=== PATIENT | female | born 1980 | race Caucasian/White ===

== ENCOUNTER 2019-06-27 12:35 | Emergency (ER) | payer OTHER, SELFPAY ==
[2019-06-27 12:36] VITALS: BP 117/79; PULSE 99; RESP 16; TEMP 36.6; O2SAT 96; BMI 27.0
[2019-06-27 13:21] LABS: Absolute Lymphocyte Count 1.47 X10^3/uL (0.83-4.51); Absolute Neutrophil Count 7.2 X10^3/uL (2.0-7.7); Basophil# 0.09 X10^3/uL; Basophil% 0.9 % (0-1); Hematocrit 36.7 % (37-47); Hemoglobin 11.4 g/dL (12.0-15.0); Lymphocyte # 1.47 X10^3/ul (4.0); Mean Corp Hgb Conc 31.1 g/dL (32-36); Mean Corpuscular Hgb 25.1 pg (27.0-32.0); Mean Corpuscular Volume 80.8 fL (81-99); Mean Platelet Vol. 9.1 fl (6.2-12.0); Monocyte# 0.85 X10^3/uL; Monocyte% 8.7 % (0-10); NRBC Flagged by Analyzer 0 % (0-5); Neutrophil # 7.15 X10^3/uL (2.7-7.7); POSITIVE MORPHOLOGY YES; Platelet Count 357 K/mm3 (150-450); RBC Distribution Width CV 20.1 % (11.6-14.6); RBC Distribution Width SD 58.6 fl (35.1-43.9); Red Blood Count 4.54 M/mm3 (4.2-5.4); White Blood Count 9.8 K/mm3 (4.4-11.0)
[2019-06-27 13:22] LABS: Differential Indicated SCAN CRITERIA MET
[2019-06-27 13:40] LABS: Anisocytosis 1+
[2019-06-27 14:30] LABS: AST(SGOT) 18 U/L (15-37); Alanine Aminotransfer ALT/SGPT 23 U/L (13-56); Albumin, Serum 3.5 g/dL (3.2-5.0); Alkaline Phosphatase 66 U/L (45-117); Anion Gap 7 (5-15); BUN 11 mg/dL (7-18); BUN/Creat Ratio 15.2 RATIO (10-20); Calcium,Total 9.1 mg/dL (8.5-10.1); Chloride 110 mmol/L (98-107); Creatinine, Serum 0.72 mg/dL (0.55-1.02); EST Glomerular Filtration Rate 95 mL/min (>60); Est Glom Filt Rate - Afr Amer 115 mL/min (>60); Estimated Creatinine Clearance 90.59 ml/min; Globulin 3.5 g/dL (2.2-4.2); Glucose 82 mg/dL (74-106); Potassium 3.6 mmol/L (3.5-5.1); Sodium Level 142 mmol/L (136-145)
[2019-06-27 15:09] VITALS: RESP 18
--- NOTE | 2019-06-27 15:10 | ED.VISSUMM ---
- ER Visit Summary Date of Service: 06/27/19 Chief Complaint: Abdominal pain and diarrhea History of Present Illness: The patient is a 39 F who presents with abdominal pain and diarrhea that has been constant for the past 3 weeks. Patient states she was started on Omnicef last month for an infection. Patient states that when she was taking this she started having abdominal cramping and diarrhea. Patient states she then developed an allergic reaction to the Omnicef. Patient stopped this after 5 days. Patient states the diarrhea has been persistent. Patient states the diarrhea is watery. Patient states she has multiple episodes per day. Patient denies any nausea or vomiting. Patient admits to some lower abdominal cramping that comes on prior to the diarrhea episodes. Patient states this resolves after she has a bowel movement. Patient denies any dysuria or hematuria. Patient admits to subjective chills but denies any fevers. Physical Examination: Vital signs are stable. Patient is afebrile. Patient is in no acute distress. Oral mucosa is pink and moist. Neck is supple. Trachea is midline. There is no JVD noted. Heart was regular rate and rhythm. Lungs are clear and equal bilaterally. Abdomen is soft. Bowel sounds are normal. There is mild lower abdominal tenderness. There is no rebound or guarding noted. Skin is warm dry. Cranial nerves II through XII are intact. There are no focal motor or sensory deficits noted. Extremities are intact. There is no calf tenderness or edema. Test Results: CBC and comprehensive metabolic profile were within normal limits. Stool studies were sent for C. difficile and enteric pathogens. Emergency Department Course and Treatment: Patient with was given IV fluids here. Patient states she still has some intermittent cramping on reevaluation. Care of the patient was turned over to the oncoming physician pending stool study results. Disposition: Discharge home Impression: Diarrhea This note was generated with [employer] dictation software. It may contain incorrect words, spelling, and punctuation that were not noted in review of the chart prior to signing ED Disposition - Plan for ED Patient: Disposition: Home or Assisted Living Diagnosis: Diarrhea Instructions: DIARRHEA, Unk Cause (Adult) Report Pendg Referrals: Vahid eHss, [Primary Care Provider] - 3-5 Days
[2019-06-27 17:04] VITALS: RESP 18
--- NOTE | 2019-06-27 17:28 | ED.VIS.GEN ---
History of Present Illness Chief Complaint: Diarrhea Past Medical History - Allergies and Home Meds Allergies/Adverse Reactions: Allergies cefdinir Allergy (Verified 06/27/19 12:38) Hives Primary Care Physician: Vahid Hess DO [Primary Care Provider] - 3-5 Days Smoking Status: Never smoker Physical Exam Vital Signs/Narrative: Vital Signs Resp 06/27/19 17:04 18 06/27/19 15:09 18 ED Disposition - Plan for ED Patient: Disposition: Home or Assisted Living Diagnosis: Diarrhea Instructions: DIARRHEA, Unk Cause (Adult) Report Pendg Referrals: Vahid Hess DO [Primary Care Provider] - 3-5 Days
--- NOTE | 2019-06-27 17:28 | ED.DEP ---
ED Disposition - Plan for ED Patient: Disposition: Home or Assisted Living Diagnosis: Diarrhea Instructions: DIARRHEA, Unk Cause (Adult) Report Pendg Prescriptions: Vancomycin [Vancocin] 125 mg PO Q6H 10 Days #40 cap Prescription Printed Referrals: Vahid Hess DO [Primary Care Provider] - 3-5 Days
== END 2019-06-27 17:58 | disposition home or self-care (01) ==
PROVIDERS: Emergency Medicine; Emergency Provider Emergency Medicine; Family Provider Family Medicine; PCP Family Medicine
DX: R19.7 Diarrhea, unspecified (principal); R10.31 Right lower quadrant pain; R10.32 Left lower quadrant pain; R68.83 Chills (without fever); R53.1 Weakness
CPT/HCPCS: 80053; 85025; 87493; 87506; 99283; J7030; A4216

== ENCOUNTER 2019-07-28 10:56 | Emergency (ER) | payer OTHER, SELFPAY ==
[2019-07-28 10:57] VITALS: BP 116/76; PULSE 105; RESP 17; TEMP 37.1; O2SAT 97; BMI 25.6
[2019-07-28 11:10] VITALS: TEMP 37.1
[2019-07-28 11:27] LABS: Absolute Lymphocyte Count 1.32 X10^3/uL (0.83-4.51); Absolute Neutrophil Count 7.8 X10^3/uL (2.0-7.7); Basophil# 0.04 X10^3/uL; Basophil% 0.4 % (0-1); Eosinophil# 0.08 X10^3/uL; Eosinophils% 0.8 % (0-5); Hematocrit 40.5 % (37-47); Hemoglobin 12.7 g/dL (12.0-15.0); Lymphocyte # 1.32 X10^3/ul (4.0); Lymphocyte % 13.4 % (19-41); Mean Corp Hgb Conc 31.4 g/dL (32-36); Mean Corpuscular Hgb 26.3 pg (27.0-32.0); Mean Platelet Vol. 9.5 fl (6.2-12.0); Monocyte# 0.58 X10^3/uL; Monocyte% 5.9 % (0-10); NRBC Flagged by Analyzer 0 % (0-5); Neutrophil # 7.82 X10^3/uL (2.7-7.7); Neutrophil % 79.2 % (47-70); Platelet Count 364 K/mm3 (150-450); RBC Distribution Width CV 18.7 % (11.6-14.6); RBC Distribution Width SD 56.9 fl (35.1-43.9); Red Blood Count 4.82 M/mm3 (4.2-5.4); White Blood Count 9.9 K/mm3 (4.4-11.0)
[2019-07-28] MEDS: 0.9% Normal Saline 1,000 ML 1000 ML IV (11:30)
[2019-07-28] MEDS: Dicyclomine 20 MG/2 ML Vial IM (11:30)
[2019-07-28 11:41] LABS: ALB/GLOB Ratio 1.2 RATIO (0.9-2.4); AST(SGOT) 17 U/L (15-37); Alanine Aminotransfer ALT/SGPT 26 U/L (13-56); Albumin, Serum 4.3 g/dL (3.2-5.0); Alkaline Phosphatase 78 U/L (45-117); Anion Gap 9 (5-15); BUN 14 mg/dL (7-18); BUN/Creat Ratio 17.9 RATIO (10-20); Calcium,Total 9.4 mg/dL (8.5-10.1); Chloride 109 mmol/L (98-107); Creatinine, Serum 0.78 mg/dL (0.55-1.02); EST Glomerular Filtration Rate 87 mL/min (>60); Est Glom Filt Rate - Afr Amer 105 mL/min (>60); Estimated Creatinine Clearance 83.62 ml/min; Globulin 3.7 g/dL (2.2-4.2); Glucose 80 mg/dL (74-106); Potassium 3.8 mmol/L (3.5-5.1); Sodium Level 141 mmol/L (136-145)
[2019-07-28 11:59] LABS: Lactic Acid 0.7 mmol/L (0.4-1.9)
[2019-07-28 13:50] VITALS: RESP 14
[2019-07-28 14:03] VITALS: BP 115/76; PULSE 84; RESP 14; O2SAT 97
--- NOTE | 2019-07-28 15:19 | ED.DCSUM_ITS ---
- ER Visit Summary Date of Service: 07/28/19 Chief Complaint: [Diarrhea] History of Present Illness: The patient is a 39 F [presents to the emergency department with complaint of diarrhea that started 5 days ago. Patient states that she was treated for C. difficile colitis 1 month ago with vancomycin. Pat calista states that her symptoms essentially resolved until they returned 4 days ago. Patient had been on antibiotics in May for sinus infection. Patient describes diffuse abdominal discomfort and cramping. She is not had any fevers. She denies any blood in her stool or black tarry stool. Patient denies urinary symptoms. Patient denies recent travel.] Physical Examination: [HEENT-PERRLA, EOMI. Cranial nerves II through XII grossly intact. TMs clear. Mucous membranes moist. No adenopathy. Cardiovascular-regular rate and rhythm without murmur or ectopy Lungs-clear to auscultation, chest wall stable without crepitus or subcu emphysema Abdomen-normoactive bowel sounds, soft, nontender, no rebound or rigidity, no peritoneal signs. Extremities-intact ?4, normal range of motion, normal pulses, atraumatic] Test Results: [CBC with differential obtained showing a 9.9, hemoglobin 12.7, hematocrit 40, platelets 364. Chemistries unremarkable. Liver enzymes unremarkable. C. difficile from stool obtained was negative for C. difficile antigen and negative for C. difficile toxin however it was positive for toxigenic C. difficile DNA.] Enteric pathogens were negative. Emergency Department Course and Treatment: [Case was discussed with Dr. Stallings who would be happy to see patient in follow-up and recommended that we either start patient on Dificid or long taper of vancomycin. Patient would prefer the vancomycin based on cost. He was given 1 dose of vancomycin p.o. in the department.] Treatment Plan: [Patient will be treated with vancomycin long taper] Disposition: [Discharged home in stable condition] Impression: [Diarrhea/C. difficile colitis] This note was generated with [employer] dictation software. It may contain incorrect words, spelling, and punctuation that were not noted in review of the chart prior to signing ED Disposition - Plan for ED Patient: Referrals: Care Physician,No Primary [Primary Care Provider] -
--- NOTE | 2019-07-28 15:58 | DCINST.ED_ITS ---
ED Disposition - Plan for ED Patient: Instructions: Clostridium difficile Infection Prescriptions: Vancomcyin 125mg/5mL PO Liquid 125 mg PO Q6 #56 po.syringe Transmission Status: Pending to [id number] Referrals: Care Physician,No Primary [Primary Care Provider] - Pipe Stallings MD [STAFF PHYSICIAN] - 3-5 Days
[2019-07-28 16:12] VITALS: RESP 16
== END 2019-07-28 16:18 | disposition home or self-care (01) ==
LOC: ED 11:20
PROVIDERS: Emergency Provider Emergency Medicine
DX: A04.72 Enterocolitis due to Clostridium difficile, not specified as recurrent (principal)
CPT/HCPCS: 80053; 83605; 85025; 87493; 87506; 96360; 96372; 99284; J7030; A4216

== ENCOUNTER 2020-07-02 07:16 | Emergency (ER) | payer OTHER, SELFPAY ==
[2020-07-02 07:17] VITALS: BP 116/66; PULSE 112; RESP 16; TEMP 35.9; O2SAT 97; BMI 23.9
--- NOTE | 2020-07-02 07:31 | CT_ITS ---
STUDY: CT ABDOMEN AND PELVIS WITHOUT CONTRAST REASON FOR EXAM: Female, 40 years old. LEFT FLANK PAIN X 10 DAYS, CHILLS RADIATION DOSAGE (If Supplied By Facility): CTDIvol = ( 6.33 ) mGy, DLP = ( 303.46 ) mGycm TECHNIQUE: Transaxial images were obtained from the dome of the diaphragm to the symphysis pubis without oral contrast, and without intravenous contrast. Sagittal and coronal images were reconstructed. Individualized dose optimization techniques were used for this CT. COMPARISON: None. FINDINGS: The visualized lung bases are unremarkable. The visualized portions of the heart are within normal limits. 1 cm cyst in the lateral aspect of the dome of the right lobe of the liver. Normal gallbladder and extrahepatic biliary system. Normal spleen. Normal pancreas. Normal bilateral adrenal glands. Normal right kidney. Mild degree of left hydronephrosis and left hydroureter down to the region of the bladder. No obstructive uropathy is seen. This may represent either left vesicoureteral reflux or recently passed calculus. Normal visualized stomach. Normal small intestine. Normal colon. The appendix is visualized and appears normal. Normal abdominal aorta. Normal inferior vena cava. Normal retroperitoneum. Normal urinary bladder. A calcified phlebolith is seen in the right hemipelvis. Normal abdominal wall. Normal osseous structures. CT/Abdomen/Pelvis without Cont IMPRESSION: Mild degree of left hydronephrosis and left hydroureter down to the bladder without evidence of an obstructive uropathy. This may represent either a recently passed calculus or possible left vesicoureteral reflux. Electronically Signed: Thomas Zarate MD at 8:24 EST , Service support ,
[2020-07-02 07:43] VITALS: BP 116/66; PULSE 112; RESP 16; TEMP 35.9; O2SAT 97
[2020-07-02 07:44] LABS: Mucous, Urine 0 SEEN /hpf (<or=2+)
[2020-07-02 07:46] LABS: Color, Urine Yellow (Yellow); Glucose, Dipstick Normal (Normal); Ketone-Dipstick 15 mg/dl (Negative); Leukocyte Esterase-Dipstick 500 /ul (Negative); Nitrite-Dipstick Negative (Negative); Occult Blood-Urine 150 /ul (Negative); Protein-Dipstick Negative (Negative); Urine Bilirubin Dipstick Negative (Negative); Urine Clarity Clear (Clear); Urine Urobilinogen Normal (Normal)
[2020-07-02 07:47] LABS: Absolute Lymphocyte Count 1.08 X10^3/uL (0.83-4.51); Absolute Neutrophil Count 10.4 X10^3/uL (2.0-7.7); Basophil# 0.07 X10^3/uL; Basophil% 0.5 % (0-1); Eosinophil# 0.14 X10^3/uL; Eosinophils% 1.1 % (0-5); Hematocrit 41.2 % (37-47); Hemoglobin 13.5 g/dL (12.0-15.0); Lymphocyte # 1.08 X10^3/ul (4.0); Lymphocyte % 8.3 % (19-41); Mean Corp Hgb Conc 32.8 g/dL (32-36); Mean Corpuscular Hgb 29.2 pg (27.0-32.0); Mean Platelet Vol. 9.2 fl (6.2-12.0); Monocyte# 1.23 X10^3/uL; Monocyte% 9.5 % (0-10); NRBC Flagged by Analyzer 0 % (0-5); Neutrophil # 10.36 X10^3/uL (2.7-7.7); Neutrophil % 80.1 % (47-70); Platelet Count 377 K/mm3 (150-450); RBC Distribution Width CV 13.1 % (11.6-14.6); RBC Distribution Width SD 42.8 fl (35.1-43.9); Red Blood Count 4.63 M/mm3 (4.2-5.4)
[2020-07-02 07:49] LABS: Internal QC Validated? YES +Cl - CLEAR BKGD; Pregnancy, Urine Negative Negative
[2020-07-02 07:52] LABS: Bacteria 1+ /hpf (None Seen); Red Blood Cells-Urine 0-5 SEEN /hpf (0-5); Squamous Epithelial Cells - UA 0-5 SEEN /hpf (5-10); White Blood Cells 5-10 SEEN /hpf (0-5)
[2020-07-02] MEDS: 0.9% Normal Saline 1,000 ML 125 ML IV (07:52)
[2020-07-02] MEDS: Ketorolac 15 MG/ML Vial IV (07:52)
[2020-07-02 07:58] LABS: Anion Gap 9 (5-15); BUN 9 mg/dL (7-18); Calcium,Total 9.1 mg/dL (8.5-10.1); Chloride 103 mmol/L (98-107); Creatinine, Serum 0.75 mg/dL (0.55-1.02); EST Glomerular Filtration Rate 91 mL/min (>60); Est Glom Filt Rate - Afr Amer 110 mL/min (>60); Glucose 97 mg/dL (74-106); Potassium 3.3 mmol/L (3.5-5.1); Sodium Level 137 mmol/L (136-145)
--- NOTE | 2020-07-02 08:56 | ED.DCSUM_ITS ---
History of Present Illness Chief Complaint: Flank Pain Narrative: Patient presenting for evaluation secondary to flank pain. Patient states that about a week ago she had a left-sided flank pain. She reports that it lasted for couple of days and then spontaneously resolved. Patient states that however over the course the last 2 days now she has had a reemergence of this left flank pain. Is continuous type pain, does not wax and wane. Has not been associated with any urinary symptoms such as dysuria hematuria frequency or urgency. Patient denies any history of kidney stones. Patient was concerned that she had a potential kidney infection. It has been associated with some chills and nausea, no vomiting associated with this. 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 She is anxious about taking antibiotics. Past Medical History - Allergies and Home Meds Allergies/Adverse Reactions: Allergies cefdinir Allergy (Verified 07/02/20 07:18) Hives fidaxomicin [From Dificid] Allergy (Verified 07/02/20 07:41) Vomiting Primary Care Physician: Care Physician,No Primary [Primary Care Provider] - Prior records reviewed: Yes Past Medical History: - - Past history of C. difficile Lives: With Family Smoking Status: Never smoker Alcohol: None Drugs: None Review of Systems All systems negative except as indicated General: Reports: Chills Eyes: Denies: Visual changes - bilaterally, Diplopia ENT: Denies: Rhinorrhea, Sore throat Cardiovascular: Denies: Chest pain, Palpitations Respiratory: Denies: Dyspnea, Cough, Dyspnea on exertion Gastrointestinal: Reports: Nausea Genitourinary: Reports: - - Flank pain Musculoskeletal: Denies: Back pain, Extremity Pain Skin: Denies: Rash, Wounds Neurological: Denies: Headache, Weakness, Numbness Physical Exam Vital Signs/Narrative: Vital Signs Temp Pulse Resp BP Pulse Ox 07/02/20 07:43 96.7 F L 112 H 16 116/66 97 07/02/20 07:17 96.7 F L 112 H 16 116/66 97 Inital Vital Signs reviewed: Yes General: Well nourished, Well developed, No Acute Distress Head: Normocephalic, Atraumatic Eyes: Perrl, EOMI ENT: Moist mucous membranes, No rhinorrhea Neck: Supple, Nontender Cardiovascular: Regular rhythm, No murmurs, Tachycardia, - - Plus radial pulses bilaterally symmetric Respiratory: No distress, CTA bilaterally, Chest nontender Abdomen: Soft, Nontender, Nondistended, Normal bowel sounds, - - No reproducible flank tenderness to percussion Back: Nontender, Normal Inspection Extremities: Nontender, No edema Skin: Normal color, No rash Neurological: Alert, Oriented x3, Cranial nerves II-XII grossly intact, Normal Strength, Normal Sensation Psychological: Normal affect, Normal Mood Diagnostic/Tx/Re-eval Clinical Impression(s) from Imaging Studies Abdomen/Pelvis CT 07/02/20 07:31 IMPRESSION: Mild degree of left hydronephrosis and left hydroureter down to the bladder without evidence of an obstructive uropathy. This may represent either a recently passed calculus or possible left vesicoureteral reflux. Electronically Signed: Thomas Zarate MD at 8:24 EST , Service support , Laboratory Data 07/02/20 07/02/20 07/02/20 07:33 07:33 07:33 WBC 13.0 H RBC 4.63 Hgb 13.5 Hct 41.2 MCV 89.0 MCH 29.2 MCHC 32.8 RDW Std Deviation 42.8 RDW Coeff of [place] 13.1 Plt Count 377 MPV 9.2 Immature Gran % (Auto) 0.500 Neut % (Auto) 80.1 H Lymph % (Auto) 8.3 L [place] % (Auto) 9.5 Eos % (Auto) 1.1 Baso % (Auto) 0.5 Absolute Neuts (auto) 10.4 H Absolute Lymphs (auto) 1.08 Nucleated RBC % 0 Sodium 137 Potassium 3.3 L Chloride 103 Carbon Dioxide 25.0 Anion Gap 9 BUN 9 Creatinine 0.75 Estim Creat Clear Calc 86.10 Est GFR (MDRD) Af Amer 110 Est GFR (MDRD) Non-Af 91 BUN/Creatinine Ratio 12.0 Glucose 97 Calcium 9.1 Urine Color Yellow Urine Clarity Clear Urine pH 6.0 Ur Specific [place] 1.010 Urine Protein Negative Urine Glucose (UA) Normal Urine Ketones 15 H Urine Occult Blood 150 H Urine Nitrite Negative Urine Bilirubin Negative Urine Urobilinogen Normal Ur Leukocyte Esterase 500 H Urine RBC 0-5 SEEN Urine WBC 5-10 SEEN Ur Squamous Epith Cells 0-5 SEEN Urine Bacteria 1+ Urine Mucus 0 SEEN Urine Test Negative - Medical Decision Making Patient presented secondary to flank pain. Patient was given Zofran and Toradol as well as IV fluids. CBC demonstrates a leukocytosis of 13 with a neutrophilic predominance. Kidney function and electrolytes found to be unremarkable. Urinalysis shows +1 bacteria and 5-10 white cells potentially indicative of a urinary tract infection. CT abdomen and pelvis was performed, this shows evidence of hydronephrosis without stone. This could potentially be a recently passed stone or VUR. the patient will be treated with a course of bactrim. She will f/u with urology. ED Disposition - Plan for ED Patient: Disposition: Home or Assisted Living Diagnosis: UTI (urinary tract infection) Instructions: ED Pyelonephritis, Female (Adult) Prescriptions: Smz/Tmp Ds [Bactrim Ds] 1 tab PO BID #14 tab Prescription Printed Ketorolac [Toradol] 10 mg PO Q6H #12 tab Prescription Printed Referrals: Adeel Quinonez MD [STAFF PHYSICIAN] - 3-5 Days
[2020-07-02 09:42] VITALS: BP 103/74; PULSE 81; RESP 16; O2SAT 98
--- NOTE | 2020-07-02 09:42 | ED.RN ---
THIS NURSE REVIEWED D/C INSTRUCTIONS WITH PT. PT VERBALIZED UNDERSTANDING OF INSTRUCTIONS. PT VOICES CONCERNS WITH THE ATB AND HX OF CDIFF. PT SAYS SHE WILL TALK WITHT HE PHARMACIST. IV D/C. IV CATHETER INTACT . PT TOLERATED WELL. PT DENIES FURTHER NEEDS OR QUESTIONS AT THIS TIME
== END 2020-07-02 09:49 | disposition home or self-care (01) ==
PROVIDERS: Emergency Provider Emergency Medicine
DX: N39.0 Urinary tract infection, site not specified (principal); Z86.19 Personal history of other infectious and parasitic diseases
CPT/HCPCS: 74176; 80048; 81001; 81025; 85025; 87086; 87088; 87186; 96361; 96374; 99283; J7030; A4216